=== PATIENT | male | born 1945 | race African-American/Black ===

== ENCOUNTER → 2017-02-02 | Outpatient (CLI) | payer OTHER ==
[2017-02-02 06:30] LABS: ADD MAN DIFF? NO
[2017-02-02 06:40] LABS: BASO % 1 % (0-3); EOS % 6 % (0-3); HEMATOCRIT 37.8 % (39.0-53.0); HEMOGLOBIN 12.4 g/dL (13.0-17.5); LYMPH # 1.7 x10^3/uL (1.0-4.8); LYMPH % 33 % (24-48); MEAN CORPUSCULAR HEMOGLOBIN 31 pg (25-35); MEAN CORPUSCULAR HGB CONC 33 g/dL (31-37); MEAN CORPUSCULAR VOLUME 95 fL (79-100); MONO % 9 % (0-9); NEUT % 51 % (31-73); PLATELET COUNT 205 x10^3/uL (140-400); RED CELL DISTRIBUTION WIDTH 13.1 % (11.5-14.5); WHITE BLOOD COUNT 5.2 x10^3/uL (4.0-11.0)
[2017-02-02 06:58] LABS: ALK PHOS 81 U/L (46-116); ALT (SGPT) 31 U/L (16-63); ANION GAP 9 (6-14); AST (SGOT) 28 U/L (15-37); BLOOD UREA NITROGEN 17 mg/dL (8-26); BUN/CREATININE RATIO 15 (6-20); CALCIUM 8.5 mg/dL (8.5-10.1); CARBON DIOXIDE 29 mmol/L (21-32); CHLORIDE 103 mmol/L (98-107); CHOLESTEROL 109 mg/dL (0-200); CREATININE 1.1 mg/dL (0.7-1.3); GFR 79.8; GLUCOSE 100 mg/dL (70-99); HDLC 36 mg/dL (40-60); NON-HDL CHOLESTEROL 73 mg/dL (0-129); POTASSIUM 3.9 mmol/L (3.5-5.1); SODIUM 141 mmol/L (136-145); TOTAL BILIRUBIN 0.4 mg/dL (0.2-1.0); TOTAL PROTEIN 8.2 g/dL (6.4-8.2); TRIGLYCERIDES 245 mg/dL (0-150)
== END | disposition home or self-care (01) ==
LOC: LAB 06:21
DX: Z12.5 Encounter for screening for malignant neoplasm of prostate (principal); I10 Essential (primary) hypertension; E78.5 Hyperlipidemia, unspecified
CPT/HCPCS: 36415; 80053; 80061; 84443; 85025; G0103

== ENCOUNTER → 2017-03-14 | Outpatient (CLI) | payer OTHER ==
[2017-03-14 07:02] LABS: ADD MAN DIFF? NO
[2017-03-14 07:28] LABS: BASO % 1 % (0-3); EOS # 0.3 x10^3/uL (0.0-0.7); EOS % 5 % (0-3); HEMATOCRIT 38.5 % (39.0-53.0); HEMOGLOBIN 12.8 g/dL (13.0-17.5); LYMPH # 1.8 x10^3/uL (1.0-4.8); LYMPH % 33 % (24-48); MEAN CORPUSCULAR HEMOGLOBIN 31 pg (25-35); MEAN CORPUSCULAR HGB CONC 33 g/dL (31-37); MEAN CORPUSCULAR VOLUME 94 fL (79-100); MONO # 0.6 x10^3/uL (0.0-1.1); MONO % 11 % (0-9); NEUT # 2.7 x10^3uL (1.8-7.7); NEUT % 50 % (31-73); PLATELET COUNT 224 x10^3/uL (140-400); RED CELL DISTRIBUTION WIDTH 13.3 % (11.5-14.5); WHITE BLOOD COUNT 5.5 x10^3/uL (4.0-11.0)
[2017-03-14 07:43] LABS: ALBUMIN 4.1 g/dL (3.4-5.0); ALK PHOS 80 U/L (46-116); ALT (SGPT) 40 U/L (16-63); ANION GAP 6 (6-14); AST (SGOT) 26 U/L (15-37); BLOOD UREA NITROGEN 18 mg/dL (8-26); BUN/CREATININE RATIO 15 (6-20); CALCIUM 9.6 mg/dL (8.5-10.1); CARBON DIOXIDE 33 mmol/L (21-32); CHLORIDE 100 mmol/L (98-107); CREATINE KINASE 251 U/L (39-308); CREATININE 1.2 mg/dL (0.7-1.3); GFR 72.2; GLUCOSE 114 mg/dL (70-99); POTASSIUM 4.4 mmol/L (3.5-5.1); SODIUM 139 mmol/L (136-145); TOTAL BILIRUBIN 0.7 mg/dL (0.2-1.0); TOTAL PROTEIN 8.2 g/dL (6.4-8.2)
[2017-03-14 09:07] LABS: AMPHETAMINE/METHAMPHETAMINE NEG (NEG); BARBITURATES NEG (NEG); BENZODIAZEPINES NEG (NEG); CANNABINOIDS NEG (NEG); COCAINE NEG (NEG); ETHANOL, URINE NEG (NEG); METHADONE NEG (NEG); OPIATES NEG (NEG); PHENCYCLIDINE NEG (NEG)
[2017-03-14 09:38] LABS: VITAMIN-B12 354 pg/mL (247-911)
== END | disposition home or self-care (01) ==
LOC: LAB 06:27
DX: R68.89 Other general symptoms and signs (principal); I10 Essential (primary) hypertension; E78.00 Pure hypercholesterolemia, unspecified; R79.89 Other specified abnormal findings of blood chemistry
CPT/HCPCS: 36415; 80053; 80307; 82306; 82550; 82607; 84443; 85025

== ENCOUNTER → 2017-03-21 | Outpatient (CLI) | payer OTHER, MEDICARE ==
[2017-03-21] MEDS: GADOBUTROL 7.5 MMOL/7.5 ML VIAL IV ×4 (09:59)
== END | disposition home or self-care (01) ==
LOC: MRI 06:17
DX: R51 Headache (principal); R29.898 Other symptoms and signs involving the musculoskeletal system
CPT/HCPCS: 70553; A9585

== ENCOUNTER → 2017-04-26 | Outpatient (CLI) | payer OTHER, MEDICARE ==
[2017-04-26 08:02] LABS: CREATININE 1.2 mg/dL (0.7-1.3); GFR 72.2
[2017-04-26 08:02] LABS: BLOOD UREA NITROGEN 18 mg/dL (8-26)
== END | disposition home or self-care (01) ==
LOC: LAB 06:12
DX: R29.898 Other symptoms and signs involving the musculoskeletal system (principal)
CPT/HCPCS: 36415; 82565; 84520

== ENCOUNTER → 2017-05-02 | Outpatient (CLI) | payer OTHER, MEDICARE ==
[2017-05-02] MEDS: GADOBUTROL 7.5 MMOL/7.5 ML VIAL IV ×2 (08:52→08:53)
== END | disposition home or self-care (01) ==
LOC: MRI 08:58
DX: M48.061 Spinal stenosis, lumbar region without neurogenic claudication (principal); M51.36 Other intervertebral disc degeneration, lumbar region; M25.78 Osteophyte, vertebrae
CPT/HCPCS: 72158; A9585

== ENCOUNTER → 2017-05-03 | Outpatient (CLI) | payer OTHER, MEDICARE | END | disposition home or self-care (01) | LOC: US 06:16 | DX: I65.23 Occlusion and stenosis of bilateral carotid arteries (principal); H53.9 Unspecified visual disturbance | CPT/HCPCS: 93880 ==

== ENCOUNTER → 2017-05-16 | Outpatient (CLI) | payer OTHER, MEDICARE ==
[2017-05-16 13:13] LABS: FOLATE 23.55 ng/ml (3.2-20.0)
[2017-05-16 14:25] LABS: SEDIMENTATION RATE 8 (0-15)
[2017-05-18 14:28] LABS: ALPHA 1 0.3 g/dL (0.0-0.4); ALPHA 2 0.7 g/dL (0.4-1.0); BETA 1.1 g/dL (0.7-1.3); GAMMA 1.6 g/dL (0.4-1.8); M-SPIKE Not Observed g/dL (Not Observed); PROTEIN TOTAL 7.7 g/dL (6.0-8.5); SPEP AG RATIO 1.1 (0.7-1.7)
[2017-05-18 19:19] LABS: ANA INTERP Negative (.)
== END | disposition home or self-care (01) ==
LOC: LAB 12:04
DX: G60.9 Hereditary and idiopathic neuropathy, unspecified (principal)
CPT/HCPCS: 36415; 82746; 84165; 85651; 86038

== ENCOUNTER → 2017-06-19 | Outpatient (CLI) | payer OTHER, MEDICARE ==
[~2017-06-19] MED LIST: IOHEXOL 180 MG/ML 10 ML VIAL.; methylPREDNISolone ACETATE 40 MG/ML VIAL.; methylPREDNISolone ACETATE 80 MG/ML VIAL.
== END | disposition home or self-care (01) ==
LOC: PNCL 07:51
DX: M51.16 Intervertebral disc disorders with radiculopathy, lumbar region (principal); M21.371 Foot drop, right foot; I10 Essential (primary) hypertension; E78.00 Pure hypercholesterolemia, unspecified; Z98.890 Other specified postprocedural states; Z79.82 Long term (current) use of aspirin; Z79.899 Other long term (current) drug therapy
CPT/HCPCS: 62323; J1030; J1040; Q9965

== ENCOUNTER → 2017-07-03 | Outpatient (CLI) | payer OTHER, MEDICARE ==
[~2017-07-03] MED LIST changes: +LIDOCAINE 1% PF 2 ML VIAL.
== END ==
LOC: PNCL 07:28
DX: M51.16 Intervertebral disc disorders with radiculopathy, lumbar region (principal); E78.00 Pure hypercholesterolemia, unspecified; I10 Essential (primary) hypertension; Z98.890 Other specified postprocedural states
CPT/HCPCS: 62323; J1030; J1040; Q9965

== ENCOUNTER → 2017-11-08 | Outpatient (CLI) | payer OTHER, MEDICARE ==
[2013-02-19 07:43] VITALS: BP 123/67
[~2017-11-08] MED LIST changes: +AMLO10TA6 PO; +ASPI81TA50 PO; -IOHEXOL 180 MG/ML 10 ML VIAL.; +IRON1TAB2 PO; -LIDOCAINE 1% PF 2 ML VIAL.; +LISI1TAB5 PO; +LOVA20TA2 PO; +OMEG1CAP27 PO; -methylPREDNISolone ACETATE 40 MG/ML VIAL.; -methylPREDNISolone ACETATE 80 MG/ML VIAL.
--- NOTE | 2017-11-08 09:40 | RAD ---
Left knee, 2 views, 11/08/2017: HISTORY: Knee pain, osteoarthritis There is mild narrowing of the medial compartment of left knee joint with mild marginal spurring. Moderate spurring is present at the patellofemoral articulation. Small well-defined calcifications along the medial margin of the medial femoral condyle and lateral margin of the lateral femoral condyle are probably due to old ligamentous injuries. No acute fracture or dislocation is identified. There is a suggestion of a small knee joint effusion. IMPRESSION: 1. Moderate degenerative change. 2. Probable small knee joint effusion. 3. No acute bony abnormality is detected. Electronically signed by: Amado Alexandra MD (11/08/2017 9:36 AM) [facility]
== END | disposition home or self-care (01) ==
LOC: RAD 06:42
PROVIDERS: ATTEND Internal Medicine
DX: M17.12 Unilateral primary osteoarthritis, left knee (principal)
CPT/HCPCS: 73560

== ENCOUNTER → 2019-08-22 | Outpatient (CLI) | payer MEDICARE, OTHER ==
[2013-02-19 07:43] VITALS: BP 123/67
[~2019-08-22] MED LIST changes: -AMLO10TA6 PO; +AMLO10TA8 PO; +LISI1TAB19 PO; -LISI1TAB5 PO
[2019-08-22 07:35] LABS: BASO # 0.1 x10^3/uL (0.0-0.2); BASO % 1 % (0-3); EOS # 0.3 x10^3/uL (0.0-0.7); EOS % 6 % (0-3); HEMOGLOBIN 13.1 g/dL (13.0-17.5); LYMPH # 1.7 x10^3/uL (1.0-4.8); LYMPH % 33 % (24-48); MEAN CORPUSCULAR HEMOGLOBIN 32 pg (25-35); MEAN CORPUSCULAR HGB CONC 34 g/dL (31-37); MEAN CORPUSCULAR VOLUME 93 fL (79-100); MONO # 0.5 x10^3/uL (0.0-1.1); MONO % 9 % (0-9); NEUT # 2.6 x10^3/uL (1.8-7.7); NEUT % 51 % (31-73); PLATELET COUNT 215 x10^3/uL (140-400); RED BLOOD COUNT 4.09 x10^6/uL (4.30-5.70); WHITE BLOOD COUNT 5.1 x10^3/uL (4.0-11.0)
[2019-08-22 07:47] LABS: ALBUMIN 4.1 g/dL (3.4-5.0); ALBUMIN/GLOBULIN RATIO 1.1 (1.0-1.7); CALCIUM 8.8 mg/dL (8.5-10.1); CREATININE 1.3 mg/dL (0.7-1.3); GFR 65.3; POTASSIUM 3.9 mmol/L (3.5-5.1); TOTAL BILIRUBIN 0.8 mg/dL (0.2-1.0); TOTAL PROTEIN 7.8 g/dL (6.4-8.2)
[2019-08-22 07:50] LABS: CHOLESTEROL/HDL RATIO 3.1
[2019-08-25 13:51] LABS: FECAL OB PT NEGATIVE (NEG)
== END | disposition home or self-care (01) ==
LOC: LAB 06:52
PROVIDERS: ATTEND Family Medicine
DX: Z12.5 Encounter for screening for malignant neoplasm of prostate (principal); Z13.220 Encounter for screening for lipoid disorders; Z12.11 Encounter for screening for malignant neoplasm of colon; R10.84 Generalized abdominal pain
CPT/HCPCS: 36415; 80053; 80061; 82274; 85025; G0103

== ENCOUNTER → 2019-08-25 | Outpatient (CLI) | payer OTHER, MEDICARE ==
[2013-02-19 07:43] VITALS: BP 123/67
--- NOTE | 2019-08-25 13:10 | RAD ---
EXAM: Renal sonogram. HISTORY: Right flank pain. TECHNIQUE: Sonographic imaging the kidneys and bladder was performed. COMPARISON: None. FINDINGS: The kidneys are normal in size. No solid or cystic renal lesion is seen. There is no hydronephrosis. There is incidental cholelithiasis and hepatic steatosis. The urinary bladder is unremarkable. The aorta and inferior vena cava are not assessed. IMPRESSION: 1. Sonographically unremarkable kidneys. 2. Cholelithiasis and hepatic steatosis. Electronically signed by: Ilana Virgen MD (08/25/2019 1:06 PM) [id number]
== END | disposition home or self-care (01) ==
LOC: US 12:36
PROVIDERS: ATTEND Family Medicine
DX: K80.20 Calculus of gallbladder without cholecystitis without obstruction (principal); K76.0 Fatty (change of) liver, not elsewhere classified
CPT/HCPCS: 76770

== ENCOUNTER → 2019-08-29 | Outpatient (CLI) | payer OTHER ==
[2013-02-19 07:43] VITALS: BP 123/67
== END | disposition home or self-care (01) ==
LOC: LAB 14:03
PROVIDERS: ATTEND Internal Medicine Pulmonary Disease
DX: Z11.59 Encounter for screening for other viral diseases (principal)
CPT/HCPCS: U0003-CS

== ENCOUNTER → 2020-09-29 | Outpatient (CLI) | payer OTHER ==
[2013-02-19 07:43] VITALS: BP 123/67
[~2020-09-29] MED LIST changes: +AMLO-187 PO; -AMLO10TA8 PO; -LISI1TAB19 PO; +LISI1TAB37 PO
== END ==
LOC: LAB 15:33
PROVIDERS: ATTEND Internal Medicine Pulmonary Disease
DX: R51.9 Headache, unspecified (principal); R09.81 Nasal congestion; Z20.822 Contact with and (suspected) exposure to COVID-19
CPT/HCPCS: U0003; U0005